=== PATIENT | male | born 1975 | race African-American/Black ===

== ENCOUNTER 2017-11-04 11:06 | Emergency (ER) | payer OTHER ==
[2017-11-04] MEDS ORDERED: Lidocaine 1% w/Epinephrine 1:100K 20 ML VIAL ONE (11:41)
== END 2017-11-04 13:35 | disposition home or self-care (01) ==
LOC: EDBD 11:06 → ERS 11:06
DX: S01.312A Laceration without foreign body of left ear, initial encounter (principal); F17.220 Nicotine dependence, chewing tobacco, uncomplicated; W22.8XXA Striking against or struck by other objects, initial encounter
CPT/HCPCS: 12013; J2001